=== PATIENT | female | born 1950 | race Caucasian/White ===

== ENCOUNTER 2021-07-18 08:19 | Emergency (ER) | payer OTHER ==
--- OUTSIDE RECORDS SUMMARY | 2021-07-18 08:24 | XMS REPORT | Continuity of Care Document ---
:1950 Author Organization [facility] t Address [address] [place] [address] Care Team Providers Name Role Phone Unavailable Unavailable Unavailable Payers Payer Name Policy Type Policy Number Effective Date Expiration Date S ource Problems This patient has no known problems. Allergies, Adverse Reactions, Alerts Allergy Allergy Status Severity Reaction(s) Onset Inactive Treating Comm ents Source Name Type Date Date Clinician codeine DA Active U 2018-02 [facility] 03-05 [place] [facility] [place] iodine DA Active U 2018-02 [facility] 03-05 [place] [facility] [place] Penicill DA Active U 2018-02 [facility] ins 03-05 [place] 00:[facility]: [facility] [place] Sulfa DA Active U 2018-02 [facility] (Sulfona 03-05 [place] mide 00:00: [facility] Antibiot 00 are ics) [place] Medications This patient has no known medications. Procedures This patient has no known procedures. Results Test Description Test Time Test Comments Results Result Comments Source CBC W/AUTO DIFF 2019-01-04 08:15:00 Test Item Value Reference Range Interpretation Comme nts WHITE BLOOD CELL (test code = WBC) 10.10 K/mm3 5.0-12.0 N RED BLOOD CELL (test code = RBC) 4.40 M/mm3 4.20-5.40 N HEMOGLOBIN (test code = HGB) 13.0 G/DL 12.0-16.0 N HEMATOCRIT (test code = HCT) 41.5 % 36.0-46.0 N MEAN CELL VOLUME (test code = MCV) 94 fL 81-99 N MEAN CELL HGB (test code = MCH) 29.5 PGM 27-31 N MEAN CELL HGB CONCENTRATION (test code = MCHC) 31.3 G/DL 33-37 L RED CELL DISTRIBUTION WIDTH (test code = RDW) 15.6 % 11.6-16. 2 N PLATELET COUNT (test code = PLT) 201 K/mm3 130-400 N MEAN PLATELET VOLUME (test code = MPV) 11.8 fl 7.4-10.4 H NEUTROPHIL % (test code = NT%) 52.9 % 43-65 N IMMATURE GRANULOCYTE % (test code = IG%) 0.4 % 0.0-2.0 N LYMPHOCYTE % (test code = LY%) 37.4 % 20.5-45.5 N MONOCYTE % (test code = MO%) 6.9 % 5.5-11.7 N EOSINOPHIL % (test code = EO%) 1.8 % 0.9-2.9 N BASOPHIL % (test code = BA%) 0.6 % 0.2-1.0 N NUCLEATED RBC % (test code = NRBC%) 0.0 % 0-1.0 N NEUTROPHIL # (test code = NT#) 5.34 K/mm3 2.2-4.8 H LYMPHOCYTE # (test code = LY#) 3.78 K/mm3 1.3-2.9 H MONOCYTE # (test code = MO#) 0.70 K/mm3 0.3-0.8 N EOSINOPHIL # (test code = EO#) 0.18 K/MM3 0.0-0.2 N BASOPHIL # (test code = BA#) 0.06 K/mm3 0.0-0.1 N BASIC METABOLIC [id number] 07:58:00 Test Item Value Reference Range Interpretation Comments SODIUM (test code = NA) mmol/L 136-145 POTASSIUM (test code = K) 3.8 MMOL/L 3.6-5.2 N CHLORIDE (test code = CL) MMOL/L 98-110 CARBON DIOXIDE (test code = CO2) mEq/L 24-32 GLUCOSE (test code = GLU) mg/dL 70-110 BLOOD UREA NITROGEN (test code = 6 mg/dL 7-18 L BUN) GLOMERULAR FILTRATION RATE (test >60 code = GFR) CREATININE (test code = CREAT) mg/dL 0.60-1.30 CALCIUM (test code = CA) mg/dL 8.6-10.4 BASIC METABOLIC [id number] 07:58:00 Test Item Value Reference Range Interpretation Comments SODIUM (test code 145 mmol/L 136-145 N = NA) POTASSIUM (test 3.8 MMOL/L 3.6-5.2 N code = K) CHLORIDE (test 113 MMOL/L 98-110 H code = CL) CARBON DIOXIDE 25 mEq/L 24-32 N (test code = CO2) GLUCOSE (test code 90 mg/dL 70-110 N = GLU) BLOOD UREA 6 mg/dL 7-18 L NITROGEN (test code = BUN) GLOMERULAR >=60 max >60 The estimated FILTRATION RATE estimate glomerular (test code = GFR) filtration rate is computed usingpatient ra ce, age (>18), sex, and serum creatinin e. If anyof the neede d data elements a re missing the Laboratory giuseppe ot compute an estimation of t he glomerular filtration rate . CREATININE (test 0.47 mg/dL 0.60-1.30 L code = CREAT) CALCIUM (test code 9.1 mg/dL 8.6-10.4 N = CA) - PULM VENT PERF [id number] 16:07:00Patient Name: STANISLAV SALCEDO Unit No: [id number] EXAMS: CPT: [id number] PULM VENT PERF IMAG 37719 NUCLEAR MEDICINE VENTILATION PERFUSION LUNG SCAN: RADIOPHARMACEUTICAL DOSE: Ventilation:: DTPA 2 mCi Perfusion: Tc-99m MAA 6.5 mCi FINDINGS: Ventilation images unremarkable. No significant air trapping. No segmental ventilation perfusion mismatched defects. IMPRESSION: Low probability for acute pulmonary embolism at 1607 Reported and signed by: Holden Ho MD CC: Technologist: Lia Lowry [facility] Dt/Tm: 01/03/2019 (1607)by:[email or web address] Orig Print D/T: S: 01/03/2019 (1610) BATCH NO: N/A Name: STANISLAV SALCEDO [facility] [place] Phys: Josiah Guerrero [address] [facility] : 1950 Age: 68 Sex: F [place] Loc: T.305 A Exam Date: 01/03/2019 Status: ADM IN PH: FAX: PAGE 1 Signed [id number] 2019-01-03 15:05:00 Test Item Value Reference Range Interpretation Comments TROPONIN-I (test code = TROPI) 0.00 ng/mL 0.00-0.03 N [id number] 12:11:00 Test Item Value Reference Range Interpretation Comments TROPONIN-I (test code = TROPI) 0.00 ng/mL 0.00-0.03 N - MRI BRAIN W/O [id number] 11:28:00Patient Name: STANISLAV SALCEDO Unit No: [id number] EXAMS: CPT: [id number] MRI BRAIN W/O CONTRAST 51053 MRI OF THE BRAIN WITHOUT CONTRAST: HISTORY: Altered mental status. TECHNIQUE: Sagittal and axial T1 and T2 weighted images, axial and coronal diffusion, axial gradient echo, coronal FLAIR images were provided. COMPARISON: CT scanfrom January 03, 2019 FINDINGS: No acute cerebral ischemia/infarct is identified in the diffusion-weighted imaging. Multiple small T2 hyperintensities are scattered in the cerebral white matter more so along the periventricular region. Smallbilateral hippocampal remnant cysts/prominent perivascular spaces are incidentally noted. Ventricles and sulci are within normal limits for age. No mass-effect or midline shift is present. The pituitary fossa and internal auditory canals are within normal limits. Expected flow-voids are seen in the carotid siphons and basilar artery. The paranasal sinuses are clear. Mastoid air cells are clear. Calvarium has normal signal intensity. CONCLUSION: No acute intracranial abnormality including acute infarct is seen. Chronic microangiopathic changes at 1128 Reported and signed by: Dick Agudelo MD CC: Technologist: Rosemarie De Los Santos [facility] Dt/Tm: 01/03/2019 (1128) by:[email or web address] Orig Print D/T: S: 01/03/2019 (1131) BATCH NO: N/A Name: STANISLAV SALCEDO [facility] [place] Phys: Josiah Guerrero [address] : 1950 Age: 68 Sex: F [place] Loc: T.305 A Exam Date: 01/03/2019 Status: ADM IN PH: FAX: PAGE 1Signed ReportTHYROID STIMULATING [id number] 10:28:00 Test Item Value Reference Range Interpretation Comments THYROID STIMULATING HORMONE (test 0.50 mIU/mL 0.38-5.60 N code = TSH) LIPID PROFILE (CORONARY RISK)2019-01-03 10:20:00 Test Item Value Reference Range Interpretation Comments TRIGLYCERIDES (test 140 mg/dL 35-160 N N-acetyl -p-benzoquinone code = TRIG) imine (NAPQI), a metabolite ofacetaminophen (paracetamol), may generate errone ously lowresults in s amples for patients th at have taken toxic dos esof acetaminophen (paracetamol). CHOLESTEROL (test 165 mg/dL 50-200 N code = CHOL) HDL CHOLESTEROL (test 38 mg/dL 35-85 N code = HDL) LIPOPROTEIN LDL JORDAN 99 MG/DL 10-130 N (test code = LDLC) CORONARY RISK FACTOR 4.34 (test code = RISK) CHOL/HDL RISK MALE: 1/2 AVG 3.43 FEMALE: 1/2 AV G 3.27 AVG 4.97 AV G 4.44 2X AVG 9.55 2X AV G 7.05 3X AVG 23.39 3X AVG 11.04~~~~~~~~~~ ~~~~~~~~ ~~~~~~~~~~~~~~~ ~~~~~~~~ ~~~~~~~~~~~~~~~ ~~~~Ana Cristina onal Cholestero l Education (NCEP ) Guidelines:~~~~ ~~~~~~~~ ~~~~~~~~~~~~~~~ ~~~~~~~~ ~~~~~~~~~~~~~~~ ~~~~~~~~ ~~ HDL Cholesterol<4 0mg/dL: HDL Cholesterol (Major risk factor for CHD)>60mg/dL: H DL Cholesterol (Ne gative risk factor for CHD)40-59mg/dL: Borderline Risk LD L Cholesterol<1 00mg/dL: Desirable LDL-C [id number] 0-159mg/ dL: Borderline High Risk LDL-C [id number] 0-189mg/ dL: High risk L DL-C concentration H DL-LDL Cholesterol is affected by a number of factors suchas smoking, age and sex.~~~~~~~~~~~ ~~~~~~~~ ~~~~~~~~~~~~~~~ ~~~~~~~~ ~~~~~~~~~~~~~~~ ~~~ [id number] 09:41:00 Test Item Value Reference Range Interpretation Comments TROPONIN-I (test code = TROPI) 0.00 ng/mL 0.00-0.03 N TROPONIN I [id number] 06:59:00 Test Item Value Reference Range Interpretation Comments TROPONIN I RAPID 0.00 ng/mL 0.00-0.08 N ISTAT (test code = TROPONIN I TROPIRAP) CRITERIA0.00-0. 08 ng/mL - Negative>0.08 n g/mL - Positive The us e of serial sampling and te sting protocol is are commended practice.An danii vated troponin level alone is often not suffi cient fordiagnosis of myocardial infarction. Tro ponin results obtaine d by different assay s may vary.Evaluation of the extent of myoca rdial damage based on increase of troponin would be valid only if similar methodology is used. DRUGS OF ABUSE SCREEN [id number] 05:19:00 Test Item Value Reference Range Interpretation Comments UR COCAINE (test code = COCAU) NEGATIVE NEGATIVE UR METHAMPHETAMINE (test code = NEGATIVE NEGATIVE METHAMPHU) UR CANABINOIDS (test code = CANU) POSITIVE NEGATIVE A UR AMPHETAMINE (test code = AMPHU) NEGATIVE NEGATIVE UR BARBITURATE (test code = BARBQLU) NEGATIVE NEGATIVE UR BENZODIAZEPINE (test code = NEGATIVE NEGATIVE BENZU) METHADONE (test code = METHDU) NEGATIVE NEGATIVE PROPOXYPHENE SCREEN (test code = NEGATIVE NEGATIVE PROPXSQ) UR OPIATES QUAL (test code = POSITIVE NEGATIVE A OPIAQLU) OXYCODONE (test code = OXYCOD) NEGATIVE NEGATIVE UR TRICYCLICS (test code = TRICYCU) NEGATIVE NEGATIVE UR PHENCYCLIDINE (PCP) (test code = NEGATIVE NEGATIVE PHENCU) UR BUPRENORPHINE QUAL (test code = NEGATIVE NEAGTIVE BUPRESCRT) LIVER FUNCTION [id number] 05:12:00 Test Item Value Reference Range Interpretation Comments TOTAL PROTEIN (test 6.9 g/dL 6.0-8.3 N code = PROT) ALBUMIN (test code 3.9 g/dL 3.2-5.5 N = ALB) BILIRUBIN TOTAL 0.4 mg/dL 0.2-1.0 N C-pxskys-o-b enzoquinone (test code = BILT) imine (NA PQI), a metabolite ofacetaminophen (paracetamol), may generate errone ously lowresults in s amples for patients th at have taken toxic dos esof acetaminophen (paracetamol). BILIRUBIN DIRECT <0.1 mg/dL 0.0-0.2 N N-acetyl-p- benzoquinone (test code = BILD) imine (NA PQI), a metabolite ofacetaminophen (paracetamol), may generate errone ously lowresults in s amples for patients th at have taken toxic dos esof acetaminophen (paracetamol). BILIRUBIN INDIRECT 0.4 mg/dL (test code = BILIND) SGOT/AST (test code 29 UNITS/L 10-42 N = AST) SGPT/ALT (test code 22 UNITS/L 10-40 N = ALT) ALKALINE 107 UNITS/L 34-104 H PHOSPHATASE (test code = ALKP) [id number] 05:12:00 Test Item Value Reference Range Interpretation Comments ALCOHOL (test code = < 5.0 mg/dl 0.0-80.0 N ALC) ~~~~~~~~~~~~~~~ ~~~~~~~ ~~~~~~~~~~~~~~~ ~~~~~~~ ~~~~~~ RESU LTS ARE TO BE USED FOR MEDICAL PURPOSES ONLY.F OR LEGAL PURPOSES THE SPECIMEN MUST B E COLLECTED BY A CHAINOF CUSTODY. LEGAL TESTING IS NOT PERFORME D BY THIS FACILITY. ~~~~~~~~~~~~~~~ ~~~~~~~ ~~~~~~~~~~~~~~~ ~~~~~~~ ~~~~~~ - CT C-SPINE W/O [id number] 05:03:00Patient Name: MATIAS,STANISLAV Unit No: [id number] EXAMS: CPT: [id number] CT C-SPINE W/O CONT 30268 CT CERVICAL SPINE WITHOUT IV CONTRAST: CLINICAL HISTORY: Fall COMPARISON: None. TECHNIQUE: Axial CT of the cervical spine without contrast was performed. Coronal and sagittal reformatted images are submitted. FINDINGS: Alignment is anatomic. No acute fractures are seen. Disc space and vertebral body heights are well- preserved. There is marginal osteophyte formation at multiple levels.No soft tissue abnormalities are seen. The partially visualized lung apices are clear. IMPRESSION: No acute abnormality. DLP: 383.24 mGy-cm CT dose optimization is achieved for this examination by the use of a CT protocol in accordance with ACR practice standards and adherence to first sampler's recommendations with automated exposure control. at 0503 Reported and signed by: Umair Newby MD CC: Technologist: Prachi DomínguezDI: 18 DLP: 383 Trscr Dt/Tm: 01/03/2019 (0503) by:[email or web address] Orig Print D/T: S: 01/03/2019 (0507) BATCH NO:N/A Name: STANISLAV SALCEDO [facility] [place] Phys: Josiah Swan [facility] [address] [place] [address] : 1950 Age: 68 Sex: F [place] Loc: T[facility] Exam Date: 01/03/2019 Status: REG ER PH: FAX: PAGE 1 Signed Report- CT C-SPINE W/O [id number] 05:03:00Patient Name: STANISLAV SALCEDO Unit No: [id number] EXAMS: CPT: [id number] CT C-SPINE W/O CONT 87273 CT CERVICAL SPINE WITHOUT IV CONTRAST: CLINICAL HISTORY: Fall COMPARISON: None. TECHNIQUE: Axial CT of the cervical spine without contrast was performed. Coronal and sagittal reformatted images are submitted. FINDINGS: Alignment is anatomic. No acute fractures are seen. Disc space and vertebral body heights are well-preserved. There is marginal osteophyte formation at multiple levels.No soft tissue abnormalities are seen. The partially visualized lung apices are clear. IMPRESSION: No acute abnormality. DLP: 383.24 mGy-cm CT dose optimization is achieved for this examination by the use of a CT protocol in accordance with ACR practice standards and adherence to first sampler's recommendations with automated exposure control. at 0503 Reported and signed by: Umair Newby MD CC: Technologist: Prachi DomínguezDI: 18 DLP: 383 Trscr Dt/Tm: 01/03/2019 (0503) by:[email or web address] Orig Print D/T: S: 01/03/2019 (8137) BATCH NO:N/A Name: STANISLAV SALCEDO [facility] [place] Phys: DANAE Malhotra JoeJosiah [facility] [address] [facility] : 1950 Age: 68 Sex: F [place],[employer] Loc: T.305 A Exam Date: 01/03/2019 Status: DIS IN PH: FAX: PAGE 1 Signed Report- CT C-SPINE W/O [id number] 05:03:00Patient Name: STANISLAV SALCEDO Unit No: [id number] EXAMS: CPT: [id number] CT C-SPINE W/O CONT 52345 CT CERVICAL SPINE WITHOUT IV CONTRAST: CLINICAL HISTORY: Fall COMPARISON: None. TECHNIQUE: Axial CT of the cervical spine without contrast was performed. Coronal and sagittal reformatted images are submitted. FINDINGS: Alignment is anatomic. No acute fractures are seen. Disc space and vertebral body heights are well- preserved. There is marginal osteophyte formation at multiple levels.No soft tissue abnormalities are seen. The partially visualized lung apices are clear. IMPRESSION: No acute abnormality. DLP: 383.24 mGy-cm CT dose optimization is achieved for this examination by the use of a CT protocol in accordance with ACR practice standards and adherence to first sampler's recommendations with automated exposure control. at 0503 Reported and signed by: Umair Newby MD CC: Technologist: Prachi DomínguezDI: 18 DLP: 383 Trscr Dt/Tm: 01/03/2019 (0503) by:[email or web address] Orig Print D/T: S: 01/03/2019 (0507) BATCH NO:N/A Name: STANISLAV SALCEDO [facility] [place] Phys: Josiah Swan [facility] [address] [facility] : 1950 Age: 68 Sex: F [place] [id number] Loc: T.305 A Exam Date: 01/03/2019 Status: DIS IN PH: FAX: PAGE 1 Signed Report- CT C-SPINE W/O [id number] 05:03:00Patient Name: STANISLAV SALCEDO Unit No: [id number] EXAMS: CPT: [id number] CT C-SPINE W/O CONT 21999 CT CERVICAL SPINE WITHOUT IV CONTRAST: CLINICAL HISTORY: Fall COMPARISON: None. TECHNIQUE: Axial CT of the cervical spine without contrast was performed. Coronal and sagittal reformatted images are submitted. FINDINGS: Alignment is anatomic. No acute fractures are seen. Disc space and vertebral body heights are well-preserved. There is marginal osteophyte formation at multiple levels.No soft tissue abnormalities are seen. The partially visualized lung apices are clear. IMPRESSION: No acute abnormality. DLP: 383.24 mGy-cm CT dose optimization is achieved for this examination by the use of a CT protocol in accordance with ACR practice standards and adherence to first sampler's recommendations with automated exposure control. at 0503 Reported and signed by: Umair Newby MD CC: Technologist: Prachi DomínguezDI: 18 DLP: 383 Trscr Dt/Tm: 01/03/2019 (0503) by:[email or web address] Orig Print D/T: S: 01/03/2019 (0507) BATCH NO:N/A Name: STANISLAV SALCEDO [facility] [place] Phys: Josiah Guerrero [address] [facility] : 1950 Age: 68 Sex: F [place] [facility] [id number] Loc: T.305 A Exam Date: 01/03/2019 Status: DIS IN PH: FAX: PAGE 1 Signed Report- CT HEAD/BRAIN W/O [id number] 04:59:00Patient Name: STANISLAV SALCEDO Unit No: [id number] EXAMS: CPT: [id number] CT HEAD/BRAIN W/O CONT 06945 CT HEAD WITHOUT CONTRAST: CLINICAL HISTORY: Fall TECHN IQUE: Axial CT imaging of the brain was performed without IV contrast. Sagittal and coronal reformatted images are submitted. FINDINGS: The ventricles are normal in size and shape. No evidence of an intra-axial or extra-axial mass is seen, and no shift of the midline structures is present. There is no intracranial hemorrhage or extra-axial fluid collection. No calvarial fracture is seen. The visualized paranasal sinuses are clear. IMPRESSION: Negative CT of the brain. DLP: 667.51 mGy-cm CT dose optimization is achieved for this examination by the use of a CT protocol in accordance with ACR practice standards and adherence to first sampler's recommendations with automated exposure control. at 0459 Reported and signed by: Umair Newby MD CC: Technologist: Prachi Prater CTDI: 41 DLP: 668 Trscr Dt/Tm: 01/03/2019 (0459) by:[email or web address] Orig Print D/T: S: 01/03/2019 (0502) BATCH NO: N/A Name: STANISLAV SALCEDO [facility] [place] Phys: DANAE Malhotra JoeJosiah Br[address] [facility] : 1950 Age: 68 Sex: F [place] Loc: T.ERS Exam Date: 01/03/2019 Status: REG ER PH: FAX: PAGE 1 Signed [id number] 04:48:00 Test Item Value Reference Range Interpretation Comments D-DIMER (test 534 ng/mLFEU 0-500 HH Critical Value reported code = Bernardo Name:QUINTON SHRESTHA Last DDIMER) Name:ARASH RN/EDRESULTS READ BACK AND V Sung SWANSON, on 03/05/18, @ 0448.THE DDIMER METHOD IS USED IN THE EXC LUSION OF DEEP VEINTHROMB OSIS AND/OR PULMONARY EMBOL ISM AND THE CLINICAL CUT-OF F VALUE FOR EXCLUSION (500 NG/ML FEU) OF THESE CONDITION SIS VALIDATED BY THE MANUFACT URER OF THE METHOD. A NEGAT REY DDIMER RESULT WHEN COM BINED WITH A CLINICALASSESSM ENT OF LOW PRETEST PROBABI LITY HAS BEEN SHOWN TO HAVEA HIGH NEGATIVE PREDICTIVE VALU E OF DVT OR PE. D-DIMER WILLIAM UES >500 ng/mL ARE NOT D IAGNOSTIC FOR DVT,PEOR DIC WI THOUT OTHER CONFIRMATORY TE STS AND APPROPRIATECLIN ICAL EVALUATIONS. URINALYSIS [id number] 04:41:00 Test Item Value Reference Range Interpretation Comments UA COLOR (test code = COLU) YELLOW YELLOW UA APPEARANCE (test code = CLEAR CLEAR APPU) UA GLUCOSE DIPSTICK (test code NEGATIVE MG/AL NEGATIVE = DGLUU) UA BILIRUBIN DIPSTICK (test NEGATIVE NEGATIVE code = BILU) UA KETONE DIPSTICK (test code NEGATIVE MG/DL NEGATIVE = KETU) UA SPECIFIC GRAVITY (test code 1.015 1.000-1.030 = SGU) UA BLOOD DIPSTICK (test code = 1+ NEGATIVE A MARILYN) UA PH DIPSTICK (test code = 6.5 4.5-8.5 DEVON) UA PROTEIN DIPSTICK (test code NEGATIVE NEGATIVE = PROU) UA UROBILINOGEN DIPSTICK (test 0.2 EU/dL <=1.0 code = URO) UA NITRITE DIPSTICK (test code NEGATIVE NEGATIVE = NONA) UA LEUKOCYTE ESTERASE DIPSTICK NEGATIVE NEGATIVE (test code = LEUU) UA WBC (test code = WBCU) 0-3 /HPF 0-3 UA RBC (test code = RBCU) 5-10 /HPF 0-3 A UA EPITHELIAL CELLS (test code NONE SEEN /LPF NONE-FEW = EPIU) UA BACTERIA (test code = BACU) 1+ /HPF NEGATIVE A UA HYALINE CAST (test code = NONE SEEN /LPF NONE SEEN HYALU) URINALYSIS [id number] 04:40:00 Test Item Value Reference Range Interpretation Comments UA COLOR (test code = COLU) YELLOW YELLOW UA APPEARANCE (test code = CLEAR CLEAR APPU) UA GLUCOSE DIPSTICK (test code NEGATIVE MG/AL NEGATIVE = DGLUU) UA BILIRUBIN DIPSTICK (test NEGATIVE NEGATIVE code = BILU) UA KETONE DIPSTICK (test code NEGATIVE MG/DL NEGATIVE = KETU) UA SPECIFIC GRAVITY (test code 1.015 1.000-1.030 = SGU) UA BLOOD DIPSTICK (test code = 1+ NEGATIVE A MARILYN) UA PH DIPSTICK (test code = 6.5 4.5-8.5 DEVON) UA PROTEIN DIPSTICK (test code NEGATIVE NEGATIVE = PROU) UA UROBILINOGEN DIPSTICK (test 0.2 EU/dL <=1.0 code = URO) UA NITRITE DIPSTICK (test code NEGATIVE NEGATIVE = NONA) UA LEUKOCYTE ESTERASE DIPSTICK NEGATIVE NEGATIVE (test code = LEUU) UA WBC (test code = WBCU) /HPF 0-3 UA RBC (test code = RBCU) /HPF 0-3 UA EPITHELIAL CELLS (test code /LPF NONE-FEW = EPIU) UA BACTERIA (test code = BACU) /HPF NEGATIVE CBC W/AUTO [id number] 04:40:00 Test Item Value Reference Range Interpretation Comments WHITE BLOOD CELL (test code = WBC) 7.71 K/mm3 5.0-12.0 N RED BLOOD CELL (test code = RBC) 4.11 M/mm3 4.20-5.40 L HEMOGLOBIN (test code = HGB) 11.9 G/DL 12.0-16.0 L HEMATOCRIT (test code = HCT) 37.2 % 36.0-46.0 N MEAN CELL VOLUME (test code = MCV) 91 fL 81-99 N MEAN CELL HGB (test code = MCH) 29.0 PGM 27-31 N MEAN CELL HGB CONCENTRATION (test 32.0 G/DL 33-37 L code = MCHC) RED CELL DISTRIBUTION WIDTH (test 15.2 % 11.6-16.2 N code = RDW) PLATELET COUNT (test code = PLT) 241 K/mm3 130-400 N MEAN PLATELET VOLUME (test code = 10.6 fl 7.4-10.4 H MPV) NEUTROPHIL % (test code = NT%) 47.1 % 43-65 N IMMATURE GRANULOCYTE % (test code 0.3 % 0.0-2.0 N = IG%) LYMPHOCYTE % (test code = LY%) 40.1 % 20.5-45.5 N MONOCYTE % (test code = MO%) 8.9 % 5.5-11.7 N EOSINOPHIL % (test code = EO%) 3.1 % 0.9-2.9 H BASOPHIL % (test code = BA%) 0.5 % 0.2-1.0 N NUCLEATED RBC % (test code = 0.0 % 0-1.0 N NRBC%) NEUTROPHIL # (test code = NT#) 3.63 K/mm3 2.2-4.8 N LYMPHOCYTE # (test code = LY#) 3.09 K/mm3 1.3-2.9 H MONOCYTE # (test code = MO#) 0.69 K/mm3 0.3-0.8 N EOSINOPHIL # (test code = EO#) 0.24 K/MM3 0.0-0.2 H BASOPHIL # (test code = BA#) 0.04 K/mm3 0.0-0.1 N BNP [id number] 04:30:00 Test Item Value Reference Range Interpretation Comments BNP RAPID (test code = BNPRAP) 99 pg/mL 0.0-100.0 N TROPONIN I [id number] 04:30:00 Test Item Value Reference Range Interpretation Comments TROPONIN I RAPID 0.00 ng/mL 0.00-0.08 N ISTAT (test code = TROPONIN I TROPIRAP) CRITERIA0.00-0. 08 ng/mL - Negative>0.08 n g/mL - Positive The us e of serial sampling and te sting protocol is are commended practice.An danii vated troponin level alone is often not suffi cient fordiagnosis of myocardial infarction. Tro ponin results obtaine d by different assay s may vary.Evaluation of the extent of myoca rdial damage based on increase of troponin would be valid only if similar methodology is used. CHEMISTRY 8 [id number] 04:22:00 Test Item Value Reference Range Interpretation Comments SODIUM POC (test code = NAP) mmol/L 138-146 N POTASSIUM POC (test code = KP) mmol/L 3.5-4.9 L CHLORIDE POC (test code = CLP) mmol/L 98-109 CO2 POC (test code = CO2P) mmol/L 24-29 IONIZED CALCIUM POC (test code = mmol/L 1.10-1.32 N CAIP) GLUCOSE POC (test code = GLUP) MG/DL 70-105 H BUN POC (test code = BUNP) mg/dL 8-26 L CREATININE POC (test code = CREATP) mg/dL 0.6-1.3 L GLOMERULAR FILTRATION RATE POC (test 122 39-90 H code = GFRP) CHEMISTRY 8 [id number] 04:22:00 Test Item Value Reference Range Interpretation Comments SODIUM POC (test code = NAP) 144 mmol/L 138-146 N POTASSIUM POC (test code = KP) 3.1 mmol/L 3.5-4.9 L CHLORIDE POC (test code = CLP) 104 mmol/L 98-109 N CO2 POC (test code = CO2P) 26 mmol/L 24-29 N IONIZED CALCIUM POC (test code = 1.15 mmol/L 1.10-1.32 N CAIP) GLUCOSE POC (test code = GLUP) 114 MG/DL 70-105 H BUN POC (test code = BUNP) < 3 mg/dL 8-26 L CREATININE POC (test code = 0.5 mg/dL 0.6-1.3 L CREATP) GLOMERULAR FILTRATION RATE POC 122 39-90 H (test code = GFRP) - XR CHEST 1 [id number] 04:17:00Patient Name: STANISLAV SALCEDO Unit No: [id number] EXAMS: CPT: [id number] XR CHEST 1 V 52620 CHEST 1 VIEW CLINICAL HISTORY: Syncope COMPARISON: None. A single frontal view of the chest is submitted. FINDINGS: The cardiac silhouette is normal in size. Vascularity appears normal. The lungs are clear. No pleural effusion or pneumothorax is seen. No osseous abnormalities are seen. IMPRESSION: Negative chest radiograph. at 0417 Reported and signed by: Umair Newby MD CC: Technologist: Tc Siegel Fluoro Time: DAP (Gy m2): Air Kerma (mGy): Trscr Dt/Tm: 01/03/2019 (0417) by:[email or web address] Orig Print D/T: S: 01/03/2019 (0420) BATCH NO: N/A Name: [facility] [place] Phys: Josiah Guerrero [address] : 1950 Age: 68 Sex: F [place] Loc: T.ERS Exam Date: 01/03/2019 Status: PRE ER PH: FAX: PAGE 1 Signed Report
--- NOTE | 2021-07-18 09:17 | RAD REPORT ---
EXAM DESCRIPTION: US - Extremity Venous Uni Ltd - 07/18/2021 9:08 am CLINICAL HISTORY: pain, swelling Leg swelling and edema. COMPARISON: No comparisons FINDINGS: Right lower extremity venous system was interrogated with Doppler technique. Normal flow, compressibility and augmentation was noted. There is no DVT present. IMPRESSION: No evidence of right lower extremity deep venous thrombosis.
--- NOTE | 2021-07-18 09:51 | RAD REPORT ---
EXAM DESCRIPTION: RAD - Knee Right 3 View - 07/18/2021 9:45 am CLINICAL HISTORY: lower extremity pain Pain and swelling. COMPARISON: No comparisons FINDINGS: Mild diffuse osteopenia is seen. Mild narrowing the medial joint compartment is present co mpatible with osteoarthritis. No fracture, dislocation or joint effusion.
--- NOTE | 2021-07-18 09:52 | RAD REPORT ---
EXAM DESCRIPTION: RAD - Ankle Right 3 View - 07/18/2021 9:45 am CLINICAL HISTORY: ankle pain Pain and swelling COMPARISON: No comparisons FINDINGS: Small to moderate plantar and posterior calcaneal spurs are present. No acute fracture or dislocation is seen. Mild osteopenia.
--- NOTE | 2021-07-18 10:45 | EDPHYS ---
Physician Documentation [facility] Name: Clarita Aponte Age: 71 yrs Sex: Female : 1950 Arrival Date: 07/18/2021 Time: 08:21 Bed 10 Private MD: TERESITA Physician Vikram Bender HPI: 07/18 08:44 This 71 yrs old Female presents to ER via Wheelchair with complaints of Foot Pain, Knee jmm Pain. 08:44 The patient presents with pain. Onset: The symptoms/episode began/occurred gradually, 1 jmm day(s) ago. 08:44 Modifying factors: The symptoms are alleviated by nothing. the symptoms are aggravated jmm by movement, weight bearing, bending knee. Associated signs and symptoms: Pertinent positives: swelling, Pertinent negatives calf tenderness, numbness, rash. The patient has not experienced similar symptoms in the past. Patient states that symptoms began after a road trip from [place]. Pain is mainly located from the knee to the right ankle. Denies chest pain or shortness of breath.. ROS: 08:44 Constitutional: Negative for fever, chills, and weight loss, Cardiovascular: Negative jmm for chest pain, palpitations, and edema, Respiratory: Negative for shortness of breath, cough, wheezing, and pleuritic chest pain. 08:44 MS/extremity: Positive for injury or acute deformity, pain. 08:44 All other systems are negative. Exam: 08:44 Constitutional: This is a well developed, well nourished patient who is awake, alert, jmm and in no acute distress. Head/Face: atraumatic. Eyes: EOMI, no conjunctival erythema appreciated ENT: Moist Mucus Membranes Neck: Trachea midline, Supple Chest/axilla: Normal chest wall appearance and motion. Cardiovascular: Regular rate and rhythm. No edema appreciated Respiratory: Normal respirations, no respiratory distress appreciated Abdomen/GI: Non distended, soft Back: Normal ROM Skin: General appearance color normal 08:44 Musculoskeletal/extremity: Mild swelling noted of the right knee, full range of motion appreciated, mild tenderness to palpation anteriorly, no pain on palpation noted the right calf, mild ankle pain and foot pain on palpation, full dorsalis pedis pulse, compartments are soft, neurovascular intact. 08:44 Skin: Appearance: Color: normal in color. 08:44 Neuro: Orientation: is normal, Mentation: is normal, Memory: is normal. 08:44 Psych: Behavior/mood is pleasant, cooperative. Vital Signs: 10:39 Pulse 73; Resp 16; Temp 98.0; Pulse Ox 98% on R/A; iw MDM: 08:44 Patient medically screened. [facility] 10:44 Data reviewed: vital signs, nurses notes. Counseling: I had a detailed discussion with [facility] the patient and/or guardian regarding: the historical points, exam findings, and any diagnostic results supporting the discharge/admit diagnosis, radiology results, the need for outpatient follow up, to return to the emergency department if symptoms worsen or persist or if there are any questions or concerns that arise at home. 07/18 08:46 Order name: US Extremity Venous Unilateral Ltd; Complete Time: 09:18 [facility] 07/18 09:42 Order name: Knee Right 3 View; Complete Time: 09:55 [facility] 07/18 09:42 Order name: Ankle Right 3 View; Complete Time: 09:55 [facility] 07/18 10:20 Order name: Omkar wrap-joint: knee; Complete Time: 10:39 [facility] Administered Medications: 10:59 Drug: HYDROcodone-acetaminophen 5 mg-325 mg 1 tabs Route: PO; iw Disposition Summary: 07/18/21 10:44 Discharge Ordered Location: Home [facility] Condition: Stable [facility] Diagnosis - Pain in right knee [facility] Followup: [facility] - With: Private Physician - When: 2 - 3 days - Reason: Recheck today's complaints, Continuance of care, Re-evaluation by your physician Discharge Instructions: - Discharge Summary Sheet [facility] - Joint Pain [facility] - Musculoskeletal Pain [facility] Forms: - Medication Reconciliation Form [facility] - Thank You Letter [facility] - Antibiotic Education [facility] - Prescription Opioid Use [facility] Prescriptions: - Voltaren 1 % Topical gel - apply 4 gram by TOPICAL route 4 times per day; 1 tube; Refills: 0, Product [facility] Selection Permitted - orphenadrine citrate 100 mg Oral Tablet Sustained Release - take 1 tablet by ORAL route 2 times per day As needed; 20 tablet; Refills: 0, [facility] Product Selection Permitted Signatures: Dispatcher [employer] [facility] Vincent Elder PA PA jmm Williams, Irene, RN RN iw Corrections: (The following items were deleted from the chart) 09:41 09:36 Ankle Right 3 View+RAD.RAD.BRZ ordered. EDMS EDMS 09:41 09:36 Knee Right 3 View+RAD.RAD.BRZ ordered. EDMS EDMS 09:42 08:46 Knee Left 3 View+RAD.RAD.BRZ ordered. EDMS EDMS 09:42 08:46 Ankle Left 3 View+RAD.RAD.BRZ ordered. EDMS EDMS
--- NOTE | 2021-07-18 10:45 | ER ---
Nurse's Notes [facility] Name: Clarita Aponte Age: 71 yrs Sex: Female : 1950 Arrival Date: 07/18/2021 Time: 08:21 Bed 10 Private MD: Diagnosis: Pain in right knee Presentation: 07/18 08:47 Chief complaint: Patient states: left knee/ankle pain today. Coronavirus screen: At iw this time, the client does not indicate any symptoms associated with coronavirus-19. Ebola Screen: Patient negative for fever greater than or equal to 101.5 degrees Fahrenheit, and additional compatible Ebola Virus Disease symptoms Patient denies exposure to infectious person. Patient denies travel to an Ebola-affected area in the 21 days before illness onset. No symptoms or risks identified at this time. 08:47 Method Of Arrival: Wheelchair iw 08:47 Acuity: ARIC 4 iw 09:03 Initial Sepsis Screen: Does the patient meet any 2 criteria? No. Patient's initial iw sepsis screen is negative. Does the patient have a suspected source of infection? No. Patient's initial sepsis screen is negative. Risk Assessment: Do you want to hurt yourself or someone else? Patient reports no desire to harm self or others. Onset of symptoms was July 18, 2021. 09:03 Acuity: ARIC 3 iw Vital Signs: 10:39 Pulse 73; Resp 16; Temp 98.0; Pulse Ox 98% on R/A; iw ED Course: 08:21 Patient arrived in ED. mr 08:28 Vincent Elder PA is PHCP. [facility] 08:28 Vikram Bender MD is Attending Physician. jmm 08:48 Triage completed. iw 09:03 Mary Morales, RN is Primary Nurse. iw 09:03 Arm band placed on. iw 09:09 US Extremity Venous Unilateral Ltd In Process Unspecified. EDMS 09:47 Knee Right 3 View In Process Unspecified. EDMS 09:47 Ankle Right 3 View In Process Unspecified. EDMS Administered Medications: 10:59 Drug: HYDROcodone-acetaminophen 5 mg-325 mg 1 tabs Route: PO; iw Outcome: 10:44 Discharge ordered by . carlos 11:00 Patient left the ED. iw Signatures: Dispatcher [employer] EDMS Vincent Elder PA PA jmm Rivera, Amber mr Mary Morales, RN RN iw
[2021-07-18] MEDS ORDERED: HYDROCODONE/APAP 5/325 MG TAB ONE (11:01)
[2021-07-18 11:11] VITALS: TEMP 98; O2SAT 98
== END 2021-07-18 11:00 | disposition home or self-care (01) ==
LOC: ER 08:19
DX: M25.561 Pain in right knee (principal)
CPT/HCPCS: 93971; 99283